=== PATIENT | female | born 1990 | race African-American/Black ===

== ENCOUNTER → 2019-03-31 | Outpatient (CLI) | payer BC, OTHER ==
--- NOTE | 2019-03-31 12:11 | RAD ---
MRI of the brain without contrast 03/31/2019 Clinical History: Headaches. Technique: Unenhanced T1-weighted sagittal and axial, T2-weighted axial and coronal and FLAIR, gradient echo and diffusion-weighted axial images of the brain were obtained. Findings: The ventricles and sulci are within normal limits in size and configuration. No area of significant abnormal signal intensity is seen involving brain parenchyma. No extra-axial fluid collection is seen. There is no MRI evidence of acute ischemia/infarction. Mild mucosal thickening in seen scattered throughout the ethmoid air cells bilaterally. There are minimal bilateral mastoid effusions. Normal flow voids are seen within the major vascular structures surrounding the brain parenchyma. Impression: 1. Negative MRI of the brain. 2. Mild paranasal sinus disease. Electronically signed by: Berto Bhandari MD (03/31/2019 12:09 PM) [id number]
--- NOTE | 2019-03-31 12:23 | RAD ---
EXAM: Carotid Doppler sonogram. HISTORY: Headache. TECHNIQUE: Edwards scale and color Doppler sonographic evaluation of the neck with spectral waveform analysis was performed and static images are submitted for review. FINDINGS: The peak systolic velocity within the right common carotid artery is 97 cm/sec. The peak systolic velocity within the right internal carotid artery is 79 cm/sec and the end diastolic velocity within the right internal carotid artery is 42 cm/sec. The right ICA/CCA ratio is less than 1.0. The peak systolic velocity within the left common carotid artery is 123 cm/sec. The peak systolic velocity within the left internal carotid artery is 67 cm/sec and the end diastolic velocity within the left internal carotid artery is 30 cm/sec. The left ICA/CCA ratio is less than 1.0. There is normal antegrade flow within both vertebral arteries. IMPRESSION: 1. Slightly elevated and diastolic velocity within the right ICA. The right ICA peak systolic velocity and ICA to CCA ratio remain within normal limits. 2. No Doppler evidence of hemodynamically significant stenosis within the carotid or vertebral arteries. PQRS Compliance Statement - Stenosis calculations for CT, MR and conventional angiography are based upon measurement of the distal ICA diameter in accordance with the NASCET methodology. Stenosis calculations for carotid ultrasound studies are derived from validated velocity criteria which are known to correlate with the NASCET methodology. Electronically signed by: Cele Fleming MD (03/31/2019 12:20 PM) [place] [id number]
== END | disposition home or self-care (01) ==
LOC: MRI 10:53
PROVIDERS: ATTEND Registered Nurse
DX: J32.8 Other chronic sinusitis (principal); H74.8X3 Other specified disorders of middle ear and mastoid, bilateral
CPT/HCPCS: 70551; 93880